=== PATIENT | female | born 1955 | race Caucasian/White ===

== ENCOUNTER 2021-07-15 17:30 | Outpatient (CLI) | payer BC | END 2021-07-15 17:31 | disposition home or self-care (01) | LOC: SLEEPLAB 17:30 | PROVIDERS: ATTEND Internal Medicine Pulmonary Disease | DX: G47.33 Obstructive sleep apnea (adult) (pediatric) (principal); R06.83 Snoring; R05.3 Chronic cough; M79.7 Fibromyalgia; Z98.890 Other specified postprocedural states | CPT/HCPCS: 95806 ==

== ENCOUNTER 2022-09-15 15:21 | Outpatient (CLI) | payer BC | END 2022-09-15 15:22 | disposition home or self-care (01) | LOC: RAD 15:21 | PROVIDERS: ATTEND Internal Medicine Critical Care Medicine | DX: R06.00 Dyspnea, unspecified (principal) | CPT/HCPCS: 71046 ==